=== PATIENT | female | born 1980 ===

== ENCOUNTER 2018-05-06 08:23 | Day surgery (SDC) | payer MEDICAID ==
[2018-05-01 10:19] VITALS: BMI 23.5
[2018-05-06 08:56] VITALS: O2SAT 100
[2018-05-06] MEDS ORDERED: Midazolam 2 MG/2 ML VIAL ONE (10:14)
[2018-05-06] MEDS ORDERED: Propofol 10 mg/ml Inj (20 ML) ONE (10:14)
[2018-05-06] MEDS ORDERED: ceFAZolin 1 gm in NS 1 GM/100 ML BAG IVPB ONE (10:27)
[2018-05-06] MEDS ORDERED: Bupivacaine-Epi 0.5%-1:200,000 PF Inj ONE (11:04)
[2018-05-06] MEDS ORDERED: HYDROmorphone 0.5 mg/0.5 ml ISec IVP PRN (11:37)
--- NOTE | 2018-05-06 13:10 | PCM.SURG1 ---
Surgeon's Initial Post Op Note - Surgeon's Notes Surgeon: [employer] Administrator: [id number] Type of Anesthesia: General LMA, Local Pre-Operative Diagnosis: Left fourth digit ganglion cyst Operative Findings: Left fourth digit ganglion cyst x3 Post-Operative Diagnosis: Left fourth digit ganglion cyst Operation Performed: Excision of Left fourth digit ganglion cyst Specimen/Specimens Removed: ganglion cyst x 3 Estimated Blood Loss: EBL {In ML}: 3 Blood Products Given: N/A Drains Used: No Drains Post-Op Condition: Good Date of Surgery/Procedure: 05/06/18 Time of Surgery/Procedure: 10:15
[2018-05-06 13:37] VITALS: RESP 18
[2018-05-06 15:32] VITALS: BP 95/52; PULSE 87; TEMP 97.8
--- NOTE | 2018-05-06 23:07 | OP ---
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 PROCEDURE PERFORMED: Excision. FINDINGS: There is a huge mass located in the flexor surface of the left middle finger extending below and above the middle crease, this extends both laterally and medially on the side of the finger and it is preventing the patient from flexing her fingers. DESCRIPTION OF PROCEDURE: Under general anesthesia, the patient was prepared and draped in sterile fashion with tourniquet in place. The incision was marked on the dorsum of the finger, this is a Z-type incision. An incision was made on the skin going over the subcutaneous tissue down into the capsule of the mass. Flaps were developed both sides and also superiorly and laterally. A gentle careful sharp dissection was carried out to mobilize the entire mass. It seems that there were three components to this mass. The first mass found was excised without entering the capsule, but there were two other areas that were subsequently noted and they were excised separately. One was on the lateral aspect and one was on the medial aspect of the finger. The flexor tendon was exposed. The sheath was removed partially and then after removal of both lesions, the base of these lesions were electrocauterized for possible bleeding and also for possible remainder of the tendon sheath. The wound was then closed with interrupted sutures of 3-0 Vicryl for the subcutaneous tissue and the skin was closed with multiple interrupted simple sutures of 4-0 nylon. The estimated blood loss for the procedure was probably about 2 mL. There was no bleeding after releasing the tourniquet. A pressure dressing was applied and the procedure terminated. Isiah Pulido MD
== END 2018-05-06 15:44 | disposition home or self-care (01) ==
LOC: C.SDS 08:23
PROVIDERS: ATTEND Surgery
DX: M67.442 Ganglion, left hand (principal)
CPT/HCPCS: 26160; 88304; 88342; J0690; J1170; J2250; J2704; J3010